=== PATIENT | female | born 1950 | race Caucasian/White ===

== ENCOUNTER → 2020-10-09 12:11 | Outpatient (BNVA) | payer MEDICARE, SELFPAY | PROVIDERS: PCP Family Medicine; Visit Provider Surgery ==

== ENCOUNTER 2020-10-27 09:21 | Outpatient (REF) | payer MEDICARE, SELFPAY ==
--- NOTE | ~2020-10-27 | XR_ITS ---
EXAMINATION: XR HAND, LEFT CLINICAL INFORMATION: Pain left hand COMPARISON: None TECHNIQUE: PA, lateral, and oblique views of the left hand. FINDINGS: There is mild loss of PIP, DIP joint space without periarticular spurring. No bony erosive changes. The MCP and intercarpal joint space is maintained normal. The soft tissues are normal. XR/XR hand LT min 3V IMPRESSION: Mild degenerative changes left hand. No visible acute fracture or dislocation seen.
== END 2020-10-27 09:22 | disposition home or self-care (01) ==
LOC: HO.HOSX 09:21
PROVIDERS: Visit Provider Orthopaedic Surgery
DX: M79.642 Pain in left hand (principal); M79.89 Other specified soft tissue disorders
CPT/HCPCS: 73130; 99202

== ENCOUNTER 2020-11-13 12:54 | Outpatient (REF) | payer MEDICARE, SELFPAY ==
--- NOTE | ~2020-11-13 | US_ITS ---
EXAMINATION: ULTRASOUND UPPER EXTREMITY NON JOINT, LEFT CLINICAL INFORMATION: Evaluate for radial artery aneurysm or cellulitis COMPARISON: Radiographs 10/27/2020 TECHNIQUE: Targeted ultrasound in the area of palpable concern along the volar/radial aspect of the distal forearm/wrist. FINDINGS: Subcutaneous edema is present in the area of palpable concern. No focal fluid collection. The radial artery appears normal without evidence of aneurysm/pseudoaneurysm as questioned. US/US extremity nonvascular IMPRESSION: Subcutaneous edema is noted in the area of palpable concern at the volar/radial aspect of the left wrist. Otherwise unremarkable.
== END 2020-11-13 12:55 | disposition home or self-care (01) ==
LOC: HO.US 12:54
PROVIDERS: Visit Provider Orthopaedic Surgery
DX: M79.89 Other specified soft tissue disorders (principal)
CPT/HCPCS: 76882

== ENCOUNTER → 2020-12-22 15:36 | Outpatient (BNVA) | payer MEDICARE, SELFPAY | PROVIDERS: PCP Family Medicine; Visit Provider Orthopaedic Surgery | DX: M79.89 Other specified soft tissue disorders (principal) | CPT/HCPCS: 99212 ==

== ENCOUNTER 2021-01-06 15:43 | Outpatient (REF) | payer MEDICARE, SELFPAY ==
--- NOTE | ~2021-01-06 | MR_ITS ---
EXAMINATION: MR FOREARM WITHOUT AND WITH CONTRAST, LEFT CLINICAL INFORMATION: Left forearm pain. Lump/mass. COMPARISON: Left upper extremity soft tissue ultrasound dated 11/13/2020. TECHNIQUE: Multisequence MR imaging of the left forearm was obtained before and after the administration of 9 mL Gadavist IV contrast on a high-field strength scanner. FINDINGS: BONE: No abnormal marrow signal. No evidence of acute osseous injury. MUSCLES/TENDONS: The visualized muscles and tendons appear intact without measurable defect or abnormal enhancement. LIGAMENTS: Evaluation of intra-articular ligamentous structures significantly limited on large [id number] imaging. SOFT TISSUES: Along the ventral/radial aspect of the proximal forearm there is focal skin thickening with underlying subcutaneous stranding and enhancement (axial image 28/34). Findings are nonspecific and may represent focal cellulitis versus a soft tissue contusion. No associated abscess formation or soft tissue mass. In the region of the overlying skin marker at the level of the distal radius there is a volar, lobulated fluid structure which measures 1.2 x 0.9 x 1.9 cm (AP x ML x CC). This demonstrates thin peripheral enhancement on postcontrast imaging. Evaluation is limited on large [id number]-qb-jqfw imaging, however, this may represent a ganglion cyst versus synovial recess. MR/MR forearm LT wo/w con IMPRESSION: 1. In the region of the overlying skin marker volar to the distal radius there is a lobulated fluid structure measuring up to 1.9 cm with thin peripheral enhancement. Evaluation limited on large grspt-nm-uvot imaging, however, this may represent a ganglion cyst versus synovial recess. If there is continued clinical concern, MR of the wrist could help further evaluate. 2. Focal skin thickening with underlying subcutaneous stranding and enhancement along the radial aspect of the proximal forearm, which could represent focal cellulitis versus a soft tissue injury. No associated abscess formation or soft tissue mass.
[2021-01-06 16:13] LABS: Blood Urea Nitrogen 21 mg/dL (9-16); Estimated Glomerular Filt Rate 60
== END 2021-01-06 15:44 | disposition home or self-care (01) ==
LOC: HO.MRI 15:43
PROVIDERS: PCP Orthopaedic Surgery; Visit Provider Orthopaedic Surgery
DX: M79.89 Other specified soft tissue disorders (principal)
CPT/HCPCS: 36415; 73220; 82565; 84520; A9585

== ENCOUNTER → 2021-02-18 07:54 | Outpatient (BNVA) | payer MEDICARE, SELFPAY | PROVIDERS: Visit Provider Orthopaedic Surgery | DX: G56.02 Carpal tunnel syndrome, left upper limb (principal); M67.432 Ganglion, left wrist | CPT/HCPCS: 99212 ==

== ENCOUNTER 2021-03-05 13:04 | Day surgery (SDC) | payer MEDICARE, SELFPAY ==
--- NOTE | 2021-03-05 13:20 | W.PM.OPN ---
Operative Note Operative Note Date of Service: 03/05/21 Narrative: Preop diagnosis: 1. Left Carpal tunnel syndrome Postop diagnosis: same Procedure: 1. Left Carpal tunnel release Surgeon: Dipika Zamudio MD Anesthesia: local block using 1% lidocaine with epinephrine Findings: Thickened transverse carpal ligament. EBL: Less than 5 mL Specimens: None Complications: None Disposition: Brought to recovery room in stable condition Plan: Follow-up for 7-10 days for wound check and suture removal Indications: The patient is 71 years old, with left carpal tunnel syndrome that has been unresponsive to nonoperative management. The risks and benefits of operative treatment including but not limited to risk of damage to blood vessels, nerves, tendons, infection, persistent pain, persistent symptoms, or possible need for additional surgery were discussed with the patient and the patient wishes to proceed with surgery. Procedure: Once consent was obtained a local block was performed using a combination of 1% lidocaine with epinephrine. The patient was then brought back to the operating suite and placed on the operative table in supine position. A tourniquet was applied to the proximal aspect of the left upper extremity and the limb was prepped and draped in a standard surgical fashion. Once assured that we had a good block, a 1.5 cm longitudinal incision was made centered over the carpal tunnel. The incision was made through the skin to the subcutaneous tissues using a #15 blade. Dissection was made down to the level of the transverse carpal ligament with care being taken to protect the palmar cutaneous nerve. Once the transverse carpal ligament was clearly visualized, a longitudinal incision was made in the transverse carpal ligament 1st using a #15 blade, then using tenotomy scissors under direct visualization. Care was taken to look for and protect the motor branch of the median nerve when seen in this area. Once satisfied with our carpal tunnel release the wound was copiously irrigated with normal saline and hemostasis was obtained with a brief period of local pressure. The skin edges were reapproximated with some 5.0 nylon suture material and a sterile dressing was applied. The patient appears to have tolerated the procedure well and with no complications. All digits were well vascularized at the conclusion of the case.
[2021-03-05 13:35] VITALS: BP 135/74; PULSE 63; RESP 16; TEMP 36.3; O2SAT 96; BMI 35.4
--- NOTE | 2021-03-05 15:00 | MHC.SHP ---
Pre-Procedural Eval Section A Date of Service: 03/05/21 The patient is an INPATIENT: No Changes since office visit: No Cold of Flu in the past 2 weeks, No New Medical Problems, No Changes in Medication and No Patient answered all questions The History & Physical has been completed within 30 days and I have reviewed it.: Yes Section B Chief Complaint: carpal tunnel Allergies: Allergies Allergy/AdvReac Type Severity Reaction Status Date / Time Penicillins [PENICILLINS] Allergy Intermediate HIVES Verified 02/18/21 08:01 pregabalin Allergy Unknown hives Verified 02/18/21 08:01 meperidine [From DEMEROL] AdvReac Severe HEADACHE/VO Verified 02/18/21 08:01 MITING Plan I have reviewed the history and physical and performed a pertinent physical examination on my patient. No changes have occurred unless specified.
[2021-03-05 16:07] VITALS: BP 152/69; PULSE 53; RESP 16; TEMP 36.3; O2SAT 96
== END 2021-03-05 16:11 ==
LOC: HO.SSS 13:04
PROVIDERS: PCP Family Medicine; Visit Provider Orthopaedic Surgery
PROC: (CPT 64721; principal; 2021-03-05 14:40)
DX: G56.02 Carpal tunnel syndrome, left upper limb (principal)
CPT/HCPCS: 64721

== ENCOUNTER → 2021-03-18 11:13 | Outpatient (BNVA) | payer MEDICARE, SELFPAY | PROVIDERS: PCP Family Medicine; Visit Provider Orthopaedic Surgery | DX: M67.432 Ganglion, left wrist (principal); G56.02 Carpal tunnel syndrome, left upper limb | CPT/HCPCS: 99212 ==

== ENCOUNTER 2021-08-24 08:26 | Outpatient (REF) | payer MEDICARE, SELFPAY ==
--- NOTE | ~2021-08-24 | XR_ITS ---
EXAMINATION: XR BILATERAL AP KNEE XR LEFT KNEE XR RIGHT KNEE CLINICAL INFORMATION: Bilateral knee pain. COMPARISON: None. TECHNIQUE: AP bilateral knee standing. 2 views each knee. FINDINGS: Ap Bilateral Knee: There is mild reduction in the medial and lateral compartment joint space of the left knee with periapical spurring medial compartment. There is chondrocalcinosis of the lateral compartment. There is a knee prosthesis right knee. Left Knee: There is moderate loss of patellofemoral compartment joint space with periarticular spurring. There is moderate suprapatellar joint effusion. There is a subtle lucency along the inferior patella likely old injury. There are enthesophytes along the anterior superior and anterior inferior patella as well. No loose body seen. Right Knee: There is a total right knee prosthesis with the prosthetic components in satisfactory alignment. There is soft tissue calcification along the quadriceps tendon. No visible fracture prosthetic loosening seen. No suggestion for fusion. XR/XR knee standing BI IMPRESSION: Degenerative arthritic changes tricompartment left knee with moderate suprapatellar joint effusion. There is periarticular spurring in the medial and the patellofemoral compartment with chondrocalcinosis. Total right knee prosthesis with prosthetic components in satisfactory alignment. No acute fracture seen.
--- NOTE | ~2021-08-24 | XR_ITS ---
EXAMINATION: XR BILATERAL AP KNEE XR LEFT KNEE XR RIGHT KNEE CLINICAL INFORMATION: Bilateral knee pain. COMPARISON: None. TECHNIQUE: AP bilateral knee standing. 2 views each knee. FINDINGS: Ap Bilateral Knee: There is mild reduction in the medial and lateral compartment joint space of the left knee with periapical spurring medial compartment. There is chondrocalcinosis of the lateral compartment. There is a knee prosthesis right knee. Left Knee: There is moderate loss of patellofemoral compartment joint space with periarticular spurring. There is moderate suprapatellar joint effusion. There is a subtle lucency along the inferior patella likely old injury. There are enthesophytes along the anterior superior and anterior inferior patella as well. No loose body seen. Right Knee: There is a total right knee prosthesis with the prosthetic components in satisfactory alignment. There is soft tissue calcification along the quadriceps tendon. No visible fracture prosthetic loosening seen. No suggestion for fusion. XR/XR knee RT 2V IMPRESSION: Degenerative arthritic changes tricompartment left knee with moderate suprapatellar joint effusion. There is periarticular spurring in the medial and the patellofemoral compartment with chondrocalcinosis. Total right knee prosthesis with prosthetic components in satisfactory alignment. No acute fracture seen.
--- NOTE | ~2021-08-24 | XR_ITS ---
EXAMINATION: XR BILATERAL AP KNEE XR LEFT KNEE XR RIGHT KNEE CLINICAL INFORMATION: Bilateral knee pain. COMPARISON: None. TECHNIQUE: AP bilateral knee standing. 2 views each knee. FINDINGS: Ap Bilateral Knee: There is mild reduction in the medial and lateral compartment joint space of the left knee with periapical spurring medial compartment. There is chondrocalcinosis of the lateral compartment. There is a knee prosthesis right knee. Left Knee: There is moderate loss of patellofemoral compartment joint space with periarticular spurring. There is moderate suprapatellar joint effusion. There is a subtle lucency along the inferior patella likely old injury. There are enthesophytes along the anterior superior and anterior inferior patella as well. No loose body seen. Right Knee: There is a total right knee prosthesis with the prosthetic components in satisfactory alignment. There is soft tissue calcification along the quadriceps tendon. No visible fracture prosthetic loosening seen. No suggestion for fusion. XR/XR knee LT 2V IMPRESSION: Degenerative arthritic changes tricompartment left knee with moderate suprapatellar joint effusion. There is periarticular spurring in the medial and the patellofemoral compartment with chondrocalcinosis. Total right knee prosthesis with prosthetic components in satisfactory alignment. No acute fracture seen.
== END 2021-08-24 08:27 | disposition home or self-care (01) ==
LOC: HO.HOSX 08:26
PROVIDERS: Visit Provider Orthopaedic Surgery
DX: M17.12 Unilateral primary osteoarthritis, left knee (principal); Z96.651 Presence of right artificial knee joint
CPT/HCPCS: 20610; 73560; 73565; 99212; J1100

== ENCOUNTER 2021-08-30 17:42 | Emergency (ER) | payer MEDICARE, SELFPAY ==
--- NOTE | ~2021-08-30 | XR_ITS ---
EXAMINATION: XR CHEST CLINICAL INFORMATION: SOB COMPARISON: None TECHNIQUE: 2 views of the chest were obtained. FINDINGS: The lungs are well-expanded and clear. The heart size and pulmonary vascularity is normal. There is moderate spondylosis dorsal spine. No lytic process. XR/XR chest 2V IMPRESSION: Unremarkable chest exam.
[2021-08-30 17:52] VITALS: BP 148/62; PULSE 64; RESP 18; TEMP 37.1; O2SAT 95; BMI 34.8
--- NOTE | 2021-08-30 17:55 | ECG_ITS ---
Test Reason : chest pain Blood Pressure : / mmHG Vent. Rate : 063 BPM Atrial Rate : 063 BPM P-R Int : 210 ms QRS Dur : 098 ms QT Int : 408 ms P-R-T Axes : 076 -10 012 degrees QTc Int : 417 ms Sinus rhythm with 1st degree A-V block Moderate voltage criteria for LVH, may be normal variant ( R in aVL , Monty product ) Borderline ECG No previous ECGs available Referred By: Generic ED Physician Electronically Signed By:Johnny Woodall
[2021-08-30 21:10] LABS: Appearance Urine CLEAR; Color Urine YELLOW; Glucose Urine UA NEG (NEG); Leukocyte Esterase Urine 1+ (NEG); Nitrite Urine NEG (NEG); PH 5.5 (5.0-8.0); UACC Culture Trigger YES; Urine Blood TRACE (NEG); Urine Ketones NEG (NEG); Urine Protein NEG (NEG-TRACE)
[2021-08-30 21:30] LABS: Bacteria Urine 1+ /LPF; Squamous Epithelial Cell Urine 1+ /LPF
== END 2021-08-30 20:54 | disposition left against medical advice (07) ==
PROVIDERS: Emergency Provider Emergency Medicine; PCP Podiatrist Foot & Ankle Surgery
DX: R06.02 Shortness of breath (principal); M54.50 Low back pain, unspecified; R35.0 Frequency of micturition; Z79.899 Other long term (current) drug therapy
CPT/HCPCS: 71046; 81001; 81003; 87086; 93005; 99282; 99283

== ENCOUNTER 2021-09-08 14:35 | Outpatient (REF) | payer MEDICARE, SELFPAY ==
--- NOTE | ~2021-09-08 | CT_ITS ---
EXAMINATION: CT ABDOMEN AND PELVIS WITHOUT CONTRAST CLINICAL INFORMATION: Abdominal pain COMPARISON: None TECHNIQUE: Multidetector volumetric imaging was performed from the superior aspect of the liver through the pubic symphysis. Sagittal and coronal reformatted images were obtained on the technologist's workstation. This CT examination was performed using dose optimization techniques as appropriate, variously including the following: *Automated exposure control *Adjustment of mA and/or kV according to patient size (this includes techniques or standardized protocols for targeted exams where dose is matched to indication/reason for exam; i.e. extremities or head) *Use of iterative reconstruction technique DLP: 607 mGy-cm FINDINGS: LUNG BASES: There is a 2 mm left lower lobe nodule axial image 34 series 6. Lung bases are otherwise clear. The heart is slightly enlarged. LIVER, GALLBLADDER, AND BILIARY TREE: There is a 2 cm low-attenuation lesion in the posterior segment of the right lobe of the liver. This has low/negative Hounsfield units and may represent a cyst or fatty lesion.. The gallbladder has been removed. PANCREAS: Unremarkable. SPLEEN: Unremarkable. ADRENAL GLANDS: Unremarkable. KIDNEYS AND URETERS: The kidneys are normal in size, shape, and attenuation. No hydronephrosis, hydroureter, or calculi seen. No perinephric stranding. BLADDER: Unremarkable. GASTROINTESTINAL TRACT: There is diverticulosis of the colon. No evidence of diverticulitis is seen. The small and large bowel are otherwise unremarkable. The appendix is not seen. There are no inflammatory changes.. ABDOMINAL WALL: Small umbilical hernia containing fat. LYMPH NODES: Normal. VASCULAR: Unremarkable. PELVIC VISCERA: Unremarkable. OSSEOUS STRUCTURES: Mild scoliosis and degenerative changes of the spine. CT/CT abdomen pelvis wo con IMPRESSION: No acute findings. Diverticulosis. No evidence of diverticulitis. 2 cm low-attenuation lesion in the liver. This may represent a cyst or fatty lesion. Cholecystectomy. 2 mm left lower lobe pulmonary nodule. Fleischner guidelines were followed.
== END 2021-09-08 14:36 | disposition home or self-care (01) ==
LOC: HO.CT 14:35
PROVIDERS: Visit Provider Family Medicine
DX: R10.9 Unspecified abdominal pain (principal); R31.9 Hematuria, unspecified
CPT/HCPCS: 74176

== ENCOUNTER 2022-03-22 12:55 | Emergency (ER) | payer MEDICARE, SELFPAY ==
--- NOTE | ~2022-03-22 | XR_ITS ---
EXAMINATION: XR CHEST CLINICAL INFORMATION: Shortness of breath COMPARISON: 08/30/2021 TECHNIQUE: Frontal view of the chest was obtained. FINDINGS: Lungs grossly are clear. Heart and pulmonary vessels are normal. No congestive change. XR/XR chest 1V IMPRESSION: No active disease.
[2022-03-22 13:17] VITALS: BP 130/88; PULSE 65; RESP 16; TEMP 36.6; O2SAT 95; BMI 35.4
[2022-03-22 13:46] LABS: MANUAL DIFF FLAG NO
[2022-03-22 13:47] LABS: Basophils Percent Auto 0.2 % (0-2); Eosinophils Absolute Auto 0.2 X10*3/uL (0.0-0.4); Eosinophils Percent Auto 2.4 % (0-4); Hematocrit 42.7 % (37.0-47.0); Hemoglobin 14.2 g/dl (12.0-16.0); Imm Gran Abs Auto 0.04 X10*3/uL (0.00-0.03); Imm Gran Pct Auto 0.4 % (0.0-0.4); Lymphocytes Absolute Auto 1.1 X10*3/uL (1.2-4.9); Lymphocytes Percent Auto 11.8 % (20-40); Mean Corpuscular HGB Conc 33.3 g/dl (31.0-35.0); Mean Corpuscular Hemoglobin 29.1 pg (27.0-33.0); Mean Corpuscular Volume 87.5 fL (80.0-98.0); Mean Platelet Volume 9.3 fL (9.4-12.3); Monocytes Absolute Auto 0.5 X10*3/uL (0.1-1.2); Monocytes Percent Auto 4.9 % (2-11); Neutrophils Absolute Auto 7.6 x10*3/uL (2.0-8.3); Neutrophils Percent Auto 80.3 % (45-73); Platelet Count 251 X10*3/uL (160-400); Red Blood Count 4.88 X10*6/uL (4.20-5.50); Red Cell Distribution Width 13.3 % (11.0-16.0); White Blood Count 9.5 X10*3/uL (4.8-10.8)
[2022-03-22 13:59] LABS: Anion Gap 15 (12-20); Blood Urea Nitrogen 12 mg/dL (9-16); Calcium 9.2 mg/dL (8.4-10.2); Carbon Dioxide 27 mmol/L (22-29); Chloride 105 mmol/L (96-108); Estimated Glomerular Filt Rate > 60; Glucose Random 123 mg/dL (60-115); Potassium 3.9 mmol/L (3.3-5.1); Sodium 143 mmol/L (135-145)
[2022-03-22 14:15] LABS: COVID-19 Test Negative (Negative); IDNOW Serial# 55D5AD1C
== END 2022-03-22 23:46 | disposition left against medical advice (07) ==
PROVIDERS: Emergency Medicine; Emergency Provider Emergency Medicine; PCP Podiatrist Foot & Ankle Surgery
DX: R06.02 Shortness of breath (principal); Z20.822 Contact with and (suspected) exposure to COVID-19; R51.9 Headache, unspecified
CPT/HCPCS: 71045; 80048; 85025; 87635; 99283

== ENCOUNTER 2022-06-23 13:01 | Emergency (ER) | payer MEDICARE, SELFPAY ==
--- NOTE | ~2022-06-23 | CT_ITS ---
EXAMINATION: CT ABDOMEN AND PELVIS WITHOUT CONTRAST CLINICAL INFORMATION: Right lower quadrant pain. COMPARISON: CT abdomen 09/08/2021 TECHNIQUE: Multidetector volumetric imaging was performed from the superior aspect of the liver through the pubic symphysis. Sagittal and coronal reformatted images were obtained on the technologist's workstation. This CT examination was performed using dose optimization techniques as appropriate, variously including the following: *Automated exposure control *Adjustment of mA and/or kV according to patient size (this includes techniques or standardized protocols for targeted exams where dose is matched to indication/reason for exam; i.e. extremities or head) *Use of iterative reconstruction technique DLP: 796 mGy-cm FINDINGS: LUNG BASES: Lung bases are clear. The heart size is normal. There is a small hiatal hernia. LIVER, GALLBLADDER, AND BILIARY TREE: The liver is normal in size, shape, and attenuation. There is a 2.4 cm lobulated low-attenuation lesion posterior segment right hepatic lobe. Previously measured 2 cm. Rest of the liver is unremarkable. No intrahepatic ductal dilatation seen. The gallbladder has been surgically removed. PANCREAS: Unremarkable. SPLEEN: Unremarkable. ADRENAL GLANDS: Unremarkable. KIDNEYS AND URETERS: The kidneys are normal in size, shape, and attenuation. No hydronephrosis, hydroureter, or calculi seen. No perinephric stranding. BLADDER: Unremarkable. GASTROINTESTINAL TRACT: There is scattered stool, diverticuli and gas seen throughout the colon without significant distention or diverticulitis. The small bowel loops are normal caliber. The ileocecal junction lies in right lower pelvis. Appendix is not seen. There are no inflammatory changes in the right lower quadrant. ABDOMINAL WALL: No significant hernia is appreciated. LYMPH NODES: Normal. VASCULAR: Unremarkable. PELVIC VISCERA: The uterus is midline and appears unremarkable. There is no adnexal mass or fluid. OSSEOUS STRUCTURES: Mild degenerative disc changes L2-L3, L3-L4 and L4-L5 disc levels with ventral spondylosis. No aggressive lytic or sclerotic process. CT/CT abdomen pelvis wo IV con IMPRESSION: 1. . No acute intra-abdominal process seen. 2. Colonic diverticulosis without diverticulitis. Mild constipation. Appendix is not seen. There are no inflammatory changes in the right lower quadrant. 3. There is a 2.4 cm lobulated low-attenuation lesion in liver unchanged to previous exam from 22. Posterior segment right hepatic lobe. Fleischner guidelines were followed.
[2022-06-23 13:09] VITALS: BP 153/73; PULSE 66; RESP 18; TEMP 36.3; O2SAT 96; BMI 35.4
--- NOTE | 2022-06-23 13:09 | ED_ITS ---
HPI - Abdominal Pain General Chief Complaint: Abdominal Pain <JANIE Christian - Last Filed: 06/23/22 13:13> Stated Complaint: sent by doctor. R side hip pain going into back. <JANIE Christian - Last Filed: 06/23/22 13:13> Time Seen by Provider: 06/23/22 17:00 <JANIE Christian - Last Filed: 06/23/22 13:13> Source: patient <Malachi Samson MD - Last Filed: 06/24/22 00:58> Mode of arrival: ambulatory <Malachi Samson MD - Last Filed: 06/24/22 00:58> Limitations: no limitations <Malachi Samson MD - Last Filed: 06/24/22 00:58> History of Present Illness HPI narrative: 72 y/o female with history of diverticulitis s/p partial bowel resection in the past, hx cholecystectomy presents to the ER for right lower abdominal pain that started yesterday. Also has right lower back pain. No history of kidney stones. No urinary symptoms. No vomiting, diarrhea, or fevers. +Nausea, +CVA tenderness on the right. Patient had diverticulitis in the past but pain was on the left side feel bloated poor appetite pain get worse on movement <Malachi Samson MD - Last Filed: 06/24/22 00:58> Related Data Home Medications: Home Medications Medication Instructions Recorded Confirmed diltiazem HCl 240 mg 240 mg PO DAILY 10/09/20 06/23/22 capsule,extended release 24 hr furosemide 40 mg tablet 40 mg PO DAILY 10/09/20 06/23/22 losartan 50 mg tablet 100 mg PO DAILY 10/09/20 06/23/22 metformin 500 mg tablet 500 mg PO BID 10/09/20 06/23/22 metoprolol succinate 100 mg 100 mg PO DAILY 10/09/20 06/23/22 tablet,extended release 24 hr multivitamin 1 tab PO DAILY 10/09/20 06/23/22 pravastatin 40 mg tablet 40 mg PO DAILY 10/09/20 06/23/22 <JANIE Christian - Last Filed: 06/23/22 13:13> Allergies/Adverse Reactions: Allergies Allergy/AdvReac Type Severity Reaction Status Date / Time Penicillins [PENICILLINS] Allergy Intermediate HIVES Verified 06/23/22 13:12 pregabalin Allergy Unknown hives Verified 06/23/22 13:12 meperidine [From DEMEROL] AdvReac Severe HEADACHE/VO Verified 06/23/22 13:12 MITING <JANIE Christian - Last Filed: 06/23/22 13:13> Review of Systems Review of Systems Yes all other systems are reviewed and are negative <Malachi Samson MD - Last Filed: 06/24/22 00:58> [facility] Past Medical History Surgical History: Surgical History History of back surgery Hx of breast surgery Hx of foot surgery Hx of knee surgery <JANIE Christian - Last Filed: 06/23/22 13:13> Family History Family History: Family History Mother No problems noted. Father No problems noted. Sister No problems noted. Sister No problems noted. Sister No problems noted. Sister No problems noted. Brother No problems noted. Brother No problems noted. Brother No problems noted. Son No problems noted. Daughter Obesity <JANIE Christian - Last Filed: 06/23/22 13:13> Social History Social History: Social History Alcohol intake: current Alcohol intake frequency: holidays/special occasions only Patient Tobacco Use Status: Never used Tobacco Advance Directives: No Advance Directives Information Provided: No Current occupational status: employed Current occupation: customer service cashier [employer] <JANIE Christian - Last Filed: 06/23/22 13:13> Physical Exam ED Vital Signs: Vital Signs - 24 hr 06/23/22 13:09 06/23/22 17:18 Temperature 97.3 F 98.2 F Pulse Rate 66 67 Respiratory Rate 18 16 Blood Pressure 153/73 H 142/76 H Pulse Oximetry 96 98 Oxygen Delivery Method Room Air Room Air BMI result Body Mass Index 35.4 <JANIE Christian - Last Filed: 06/23/22 13:13> Vital Signs - 24 hr 06/23/22 13:09 06/23/22 17:18 Temperature 97.3 F 98.2 F Pulse Rate 66 67 Respiratory Rate 18 16 Blood Pressure 153/73 H 142/76 H Pulse Oximetry 96 98 Oxygen Delivery Method Room Air Room Air BMI result Body Mass Index 35.4 <Malachi Samson MD - Last Filed: 06/24/22 00:58> Appearance: Alert. Oriented X3. No acute distress. Eyes: No pallor or icterus ENT: Pharynx normal. Oral Mucosa moist Neck: Normal inspection. Neck supple. CVS: Normal heart rate and rhythm. Pulses normal. Respiratory: No respiratory distress. Equal air entry bilateral, no wheezing/rales/rhonchi Abdomen: Soft, tenderness right mid abdomen no rebound tenderness or guarding. Bowel sounds are present, no mass palpable, no CVA tenderness Skin: Skin warm and dry. Normal skin color. Normal skin turgor. Extremities: No lower extremity edema. No calf tenderness Neuro: Oriented X 3. No motor deficit. <Malachi Samson MD - Last Filed: 06/24/22 00:58> Course Course Course Narrative: RME - 72 y/o female with history of diverticulitis s/p partial bowel resection in the past, hx cholecystectomy presents to the ER for right lower abdominal pain that started yesterday. Also has right lower back pain. No history of kidney stones. No urinary symptoms. No vomiting, diarrhea, or fevers. +Nausea, +CVA tenderness on the right. Will get labs and CT scan for further evaluation. <JANIE Christian - Last Filed: 06/23/22 13:13> Medical Decision Making Medical Decision Making [facility] Narrative: Patient with right lower abdomen and pain for last few days CT scan negative for acute pathology labs are stable urine negative likely patient has pain from abdominal muscular strain. Advised patient to take ibuprofen follow with PCP <Malachi Samson MD - Last Filed: 06/24/22 00:58> Lab Data [facility] Lab Attestation statement: I reviewed the patient's lab results. <Malachi Samson MD - Last Filed: 06/24/22 00:58> Result Diagrams: 06/23/22 13:53 06/23/22 13:53 <JANIE Christian - Last Filed: 06/23/22 13:13> Labs: Lab Results 06/23/22 06/23/22 06/23/22 Range/Units 13:53 13:53 17:21 WBC 6.3 (4.8-10.8) X10*3/uL RBC 4.52 (4.20-5.50) X10*6/uL Hgb 13.5 (12.0-16.0) g/dl Hct 40.8 (37.0-47.0) % MCV 90.3 (80.0-98.0) fL MCH 29.9 (27.0-33.0) pg MCHC 33.1 (31.0-35.0) g/dl RDW 13.5 (11.0-16.0) % Plt Count 216 (160-400) X10*3/uL MPV 9.7 (9.4-12.3) fL Immature Gran % (Auto) 0.3 (0.0-0.4) % Neut % (Auto) 60.0 (45-73) % Lymph % (Auto) 18.8 L (20-40) % Bowie % (Auto) 10.6 (2-11) % Eos % (Auto) 10.0 H (0-4) % Baso % (Auto) 0.3 (0-2) % Lymph # (Auto) 1.2 (1.2-4.9) X10*3/uL Bowie # (Auto) 0.7 (0.1-1.2) X10*3/uL Eos # (Auto) 0.6 H (0.0-0.4) X10*3/uL Baso # (Auto) 0.0 (0.0-0.2) X10*3/uL Abs Immat Gran (auto) 0.02 (0.00-0.03) X10*3/uL Absolute Neuts (auto) 3.8 (2.0-8.3) x10*3/uL Absolute Nucleated RBC 0.000 (0.0-0.012) X10*3/uL Nucleated RBC % (auto) 0.0 (0.0-0.2) /100WBC Sodium 141 (135-145) mmol/L Potassium 3.9 (3.3-5.1) mmol/L Chloride 106 (96-108) mmol/L Carbon Dioxide 28 (22-29) mmol/L Anion Gap 11 L (12-20) BUN 13 (9-16) mg/dL Creatinine 0.73 (0.5-1.4) mg/dL Estim Creat Clear Calc 76.6 Estimated GFR > 60 Random Glucose 95 (60-115) mg/dL Calcium 9.8 D (8.4-10.2) mg/dL Magnesium 1.9 (1.6-2.6) mg/dL Total Bilirubin 1.4 H (0.0-1.0) mg/dL Direct Bilirubin 0.5 (0.0-0.5) mg/dL AST 38 H (5-31) U/L ALT 36 H (0-31) U/L Alkaline Phosphatase 89 (39-117) U/L Total Protein 6.5 (6.5-8.0) g/dL Albumin 3.9 (3.5-5.0) g/dL Urine Color Yellow Urine Appearance Clear Urine pH 6.0 (5.0-9.0) Ur Specific Lucile 1.025 (1.005-1.025) Urine Protein Negative (Neg-Trace) mg/dL Urine Glucose (UA) Negative (Negative) mg/dL Urine Ketones Negative (Negative) mg/dL Urine Blood Negative (Negative) Urine Nitrite Negative (Negative) Ur Leukocyte Esterase Negative (Negative) <JANIE Christian - Last Filed: 06/23/22 13:13> Lab Results 06/23/22 06/23/22 06/23/22 Range/Units 13:53 13:53 17:21 WBC 6.3 (4.8-10.8) X10*3/uL RBC 4.52 (4.20-5.50) X10*6/uL Hgb 13.5 (12.0-16.0) g/dl Hct 40.8 (37.0-47.0) % MCV 90.3 (80.0-98.0) fL MCH 29.9 (27.0-33.0) pg MCHC 33.1 (31.0-35.0) g/dl RDW 13.5 (11.0-16.0) % Plt Count 216 (160-400) X10*3/uL MPV 9.7 (9.4-12.3) fL Immature Gran % (Auto) 0.3 (0.0-0.4) % Neut % (Auto) 60.0 (45-73) % Lymph % (Auto) 18.8 L (20-40) % Bowie % (Auto) 10.6 (2-11) % Eos % (Auto) 10.0 H (0-4) % Baso % (Auto) 0.3 (0-2) % Lymph # (Auto) 1.2 (1.2-4.9) X10*3/uL Bowie # (Auto) 0.7 (0.1-1.2) X10*3/uL Eos # (Auto) 0.6 H (0.0-0.4) X10*3/uL Baso # (Auto) 0.0 (0.0-0.2) X10*3/uL Abs Immat Gran (auto) 0.02 (0.00-0.03) X10*3/uL Absolute Neuts (auto) 3.8 (2.0-8.3) x10*3/uL Absolute Nucleated RBC 0.000 (0.0-0.012) X10*3/uL Nucleated RBC % (auto) 0.0 (0.0-0.2) /100WBC Sodium 141 (135-145) mmol/L Potassium 3.9 (3.3-5.1) mmol/L Chloride 106 (96-108) mmol/L Carbon Dioxide 28 (22-29) mmol/L Anion Gap 11 L (12-20) BUN 13 (9-16) mg/dL Creatinine 0.73 (0.5-1.4) mg/dL Estim Creat Clear Calc 76.6 Estimated GFR > 60 Random Glucose 95 (60-115) mg/dL Calcium 9.8 D (8.4-10.2) mg/dL Magnesium 1.9 (1.6-2.6) mg/dL Total Bilirubin 1.4 H (0.0-1.0) mg/dL Direct Bilirubin 0.5 (0.0-0.5) mg/dL AST 38 H (5-31) U/L ALT 36 H (0-31) U/L Alkaline Phosphatase 89 (39-117) U/L Total Protein 6.5 (6.5-8.0) g/dL Albumin 3.9 (3.5-5.0) g/dL Urine Color Yellow Urine Appearance Clear Urine pH 6.0 (5.0-9.0) Ur Specific Lucile 1.025 (1.005-1.025) Urine Protein Negative (Neg-Trace) mg/dL Urine Glucose (UA) Negative (Negative) mg/dL Urine Ketones Negative (Negative) mg/dL Urine Blood Negative (Negative) Urine Nitrite Negative (Negative) Ur Leukocyte Esterase Negative (Negative) <Malachi Samson MD - Last Filed: 06/24/22 00:58> Discharge Plan Discharge Clinical Impression: Abdominal pain <JANIE Christian - Last Filed: 06/23/22 13:13> Patient Disposition: Home, Self-Care <JANIE Christian - Last Filed: 06/23/22 13:13> Instructions: Abdominal Pain (ED) <JANIE Christian - Last Filed: 06/23/22 13:13> Additional Instructions: Drink plenty of fluid Cause of your abdominal pain is not clear/likely musculoskeletal Take ibuprofen for pain Report to the ER if pain gets worse/vomiting/fever <JANIE Christian - Last Filed: 06/23/22 13:13> Prescriptions: No Action metoprolol succinate 100 mg tablet extended release 24 hr 100 mg PO DAILY pravastatin 40 mg tablet 40 mg PO DAILY furosemide 40 mg tablet 40 mg PO DAILY diltiazem HCl 240 mg capsule,extended release 24hr 240 mg PO DAILY metformin 500 mg tablet 500 mg PO BID losartan 50 mg tablet 100 mg PO DAILY multivitamin Tablet 1 tab PO DAILY <JANIE Christian - Last Filed: 06/23/22 13:13> Interventions: ED Discharge Assessment Last Done: 06/23/22 18:11 <JANIE Christian - Last Filed: 06/23/22 13:13> Discharge Date/Time: 06/23/22 18:11 <JANIE Christian - Last Filed: 06/23/22 13:13>
[2022-06-23 13:57] LABS: MANUAL DIFF FLAG NO
[2022-06-23 14:05] LABS: Basophils Percent Auto 0.3 % (0-2); Eosinophils Absolute Auto 0.6 X10*3/uL (0.0-0.4); Hematocrit 40.8 % (37.0-47.0); Hemoglobin 13.5 g/dl (12.0-16.0); Imm Gran Abs Auto 0.02 X10*3/uL (0.00-0.03); Imm Gran Pct Auto 0.3 % (0.0-0.4); Lymphocytes Absolute Auto 1.2 X10*3/uL (1.2-4.9); Lymphocytes Percent Auto 18.8 % (20-40); Mean Corpuscular HGB Conc 33.1 g/dl (31.0-35.0); Mean Corpuscular Hemoglobin 29.9 pg (27.0-33.0); Mean Corpuscular Volume 90.3 fL (80.0-98.0); Mean Platelet Volume 9.7 fL (9.4-12.3); Monocytes Absolute Auto 0.7 X10*3/uL (0.1-1.2); Monocytes Percent Auto 10.6 % (2-11); Neutrophils Absolute Auto 3.8 x10*3/uL (2.0-8.3); Platelet Count 216 X10*3/uL (160-400); Red Blood Count 4.52 X10*6/uL (4.20-5.50); Red Cell Distribution Width 13.5 % (11.0-16.0); White Blood Count 6.3 X10*3/uL (4.8-10.8)
[2022-06-23 14:31] LABS: Alanine Aminotransferase 36 U/L (0-31); Albumin Level 3.9 g/dL (3.5-5.0); Alkaline Phosphatase 89 U/L (39-117); Anion Gap 11 (12-20); Aspartate Amino Transferase 38 U/L (5-31); Bilirubin Direct 0.5 mg/dL (0.0-0.5); Bilirubin Total 1.4 mg/dL (0.0-1.0); Blood Urea Nitrogen 13 mg/dL (9-16); Calcium 9.8 mg/dL (8.4-10.2); Carbon Dioxide 28 mmol/L (22-29); Chloride 106 mmol/L (96-108); Creatinine Clr Calc Pharmacy 76.6; Estimated Glomerular Filt Rate > 60; Glucose Random 95 mg/dL (60-115); Magnesium 1.9 mg/dL (1.6-2.6); Potassium 3.9 mmol/L (3.3-5.1); Sodium 141 mmol/L (135-145); Total Protein 6.5 g/dL (6.5-8.0)
[2022-06-23 17:18] VITALS: BP 142/76; PULSE 67; RESP 16; TEMP 36.8; O2SAT 98
--- NOTE | 2022-06-23 17:19 | MHC.EDTECH ---
this pct just assumed care of pt at this time ,vital sign taken ,urine sample sent to lab .
[2022-06-23 17:36] LABS: Appearance Urine Clear; Color Urine Yellow; Glucose Urine UA Negative (Negative); Leukocyte Esterase Urine Negative (Negative); Nitrite Urine Negative (Negative); Specific Gravity - Urine 1.025 (1.005-1.025); Urine Blood Negative (Negative); Urine Ketones Negative (Negative); Urine Protein Negative (Neg-Trace)
== END 2022-06-23 18:11 | disposition home or self-care (01) ==
PROVIDERS: Physician Assistant; Emergency Provider Internal Medicine; PCP Family Medicine
DX: R10.13 Epigastric pain (principal); R10.31 Right lower quadrant pain; Z79.899 Other long term (current) drug therapy
CPT/HCPCS: 36415; 74176; 80048; 80076; 81003; 83735; 85025; 99284

== ENCOUNTER 2024-08-27 14:15 | Outpatient (AMB) | payer MEDICARE, SELFPAY ==
--- NOTE | 2024-08-27 14:16 | A.OFFVIS_ITS ---
Intake Visit Reasons: oV-left knee stiff/pain limited ROM Intake Note: Kayley is a 74 year old female who presents today for a follow up of her left knee OA. She was last seen in 08/25/2023 where the left knee was injected. which was helpful Hx of Right TKA, several years ago. Patient reports that she is having increased pain at night. She has pain while getting in and out of the car. She takes Tylenol or her pain which is mildly helpful. She has been prescribed 5mg Oxycodone by her Oncologist which she takes occationally. Allergies Penicillins [PENICILLINS] Allergy (Intermediate, Verified 06/23/22 13:12) HIVES pregabalin Allergy (Unknown, Verified 06/23/22 13:12) hives meperidine [From DEMEROL] Adverse Reaction (Severe, Verified 06/23/22 13:12) HEADACHE/VOMITING HPI HPI oV-left knee stiff/pain limited ROM: Details: Melissa comes in today with left knee pain. She has also had some sharp left groin pain. This has improved slightly over the past few weeks and now her primary complaint is left knee pain at night. Denies any recent injury. She is able to walk comfortably without an assistive device. [facility] Surgical History (Updated 08/27/24 @ 14:34 by Linnea Christianson [facility]) History of resection of liver (~2019) History of back surgery Hx of foot surgery Hx of breast surgery Hx of knee surgery Family History Mother No problems noted. Father No problems noted. Sister No problems noted. Sister No problems noted. Sister No problems noted. Sister No problems noted. Brother No problems noted. Brother No problems noted. Brother No problems noted. Son No problems noted. Daughter Obesity Social History Alcohol intake: current Alcohol intake frequency: holidays/special occasions only Patient Tobacco Use Status: Never used Tobacco Current occupational status: employed Current occupation: gas station cashier [employer] Physical Exam Extrem Other: No pain with hip hip range of motion on the left. Left knee with mild medial compartment tenderness to palpation and 5 degree loss of terminal extension with flexion to approximately 125 degrees. Results Reviewed Results Reviewed: I personally reviewed relevant radiographs. Mild hip osteoarthritis bilaterally. RIght total knee arthroplasty in expected post operative position with no hardware complications or evidence of loosening Left knee with moderate tricompartmental OA Assessment & Plan Assessment & Plan (1) Osteoarthritis of left knee: Code(s): M17.12 - Unilateral primary osteoarthritis, left knee Category: Medical Plan: Osteoarthritis of the left knee that is improving with medical management per her medical doctor. No intervention warranted at this time. She may follow up for injection for pain worsens but at this time I feel like it is improving on her own. I discussed this with her. She agrees. Orders: Orders XR knee RT 1V Today M25.569 - Pain in unspecified knee XR knee RT 2V Today Z98.890 - Other specified postprocedural states XR pelvis 1-2V Today M25.559 - Pain in unspecified hip Coding Level of Care Code Est Pt Level 3 (43389) Diagnoses Osteoarthritis of left knee M17.12
== END 2024-08-27 15:03 | disposition home or self-care (01) ==
LOC: HO.HOS 14:15
PROVIDERS: PCP Family Medicine; Visit Provider Orthopaedic Surgery
DX: M17.12 Unilateral primary osteoarthritis, left knee (principal)
CPT/HCPCS: 99213

== ENCOUNTER 2024-08-27 14:40 | Outpatient (REF) | payer MEDICARE, SELFPAY ==
--- NOTE | ~2024-08-27 | XR_ITS ---
CLINICAL HISTORY: M25.559 - Pain in unspecified hip 1 view pelvis Comparison: CT of the pelvis and bone windows from 06/23/2022 Findings: Moderate to severe osteoarthritis of the both hips, right worse than left. Sacrum and SI joints are partly obscured with degenerative changes of the partially imaged SI joints Imaged pubic rami deformities appear old chronic. Likely vascular calcification adjacent to inferior edge of the right inferior pubic ramus Enthesopathy includes imaged iliac wings of the imaged trochanters. Moderate to severe stool burden in the [id number] IMPRESSION: Moderate to severe osteoarthritis of both hips This document has been electronically signed by: Markus Rojas MD on 08/28/2024 19:53:59
--- NOTE | ~2024-08-27 | XR_ITS ---
CLINICAL HISTORY: Z98.890 - Other specified postprocedural states AP standing view bilateral knees Two-view left knee Comparison: None Findings: Prior right knee replacement. Appropriate alignment. No evidence of hardware failure. No fracture or dislocation. There is osteopenia. Moderate arthritic changes of the left knee with involvement of all 3 knee compartments. No joint effusion. No radiopaque foreign body. IMPRESSION: 1. No acute findings. This document has been electronically signed by: Sayda Hedrick MD on 08/29/2024 13:58:39
== END 2024-08-27 14:41 | disposition home or self-care (01) ==
LOC: HO.HOSX 14:40
PROVIDERS: Visit Provider Orthopaedic Surgery
DX: M25.559 Pain in unspecified hip (principal); M25.569 Pain in unspecified knee; M16.0 Bilateral primary osteoarthritis of hip; M17.12 Unilateral primary osteoarthritis, left knee; Z96.651 Presence of right artificial knee joint
CPT/HCPCS: 72170; 73562; 99212

== ENCOUNTER → 2024-08-27 14:45 | Outpatient (BNV) | payer MEDICARE, SELFPAY | PROVIDERS: Visit Provider Radiology Neuroradiology | DX: Z96.652 Presence of left artificial knee joint (principal) | CPT/HCPCS: 72170; 73562 ==

== ENCOUNTER 2025-01-28 18:49 | Emergency (ER) | payer MEDICARE, SELFPAY ==
--- NOTE | ~2025-01-28 | XR_ITS ---
CLINICAL HISTORY: Right knee pain fall 4 view right knee Comparison: None provided Findings: Postprocedural changes from right knee arthroplasty. No displaced fracture or definite hardware loosening. Moderate effusion present with multiple loose bodies. Remodeling including proximal fibula. IMPRESSION: 1. No acute fracture or hardware loosening by radiographs. 2. Effusion present. This document has been electronically signed by: Markus Rojas MD on 01/28/2025 20:30:26
--- NOTE | ~2025-01-28 | CT_ITS ---
CLINICAL HISTORY: fall CT head without contrast Comparison: None provided Findings: No acute intracranial hemorrhage. No midline shift or hydrocephalus. No large arterial territorial infarction by CT, accounting for artifacts. Mild volume loss is generalized. Question mild white matter changes as can be associated with small-vessel ischemic disease. Mucosal thickening of the imaged paranasal sinuses. No acute skull fracture. Left-sided periorbital soft tissue swelling with hematoma appear preseptal. Lucency at roof of the left orbit appears old/chronic. Imaged mastoid air cells are well aerated. There is no acute fracture. IMPRESSION: 1. No acute intracranial abnormality by CT. 2. Left-sided periorbital soft tissue swelling with hematoma are preseptal. This document has been electronically signed by: Markus Rojas MD on 01/28/2025 20:47:52
--- NOTE | ~2025-01-28 | CT_ITS ---
CLINICAL HISTORY: Fall CT maxillofacial without contrast Comparison: Head CT from 01/28/2025 Findings: Left-sided periorbital soft tissue swelling and left-sided periorbital hematoma appear preseptal. Lucency of the roof of the left orbit appears old/chronic. Bilateral nasal bone fractures/deformities with remodeling appear old/chronic. Mucosal thickening of the imaged paranasal sinuses are multifocal without acute appearing or suspicious air-fluid levels. Metal and lucencies associated with multiple remaining imaged teeth. No acute displaced mandible fracture. Mild osteoarthritis of the temporomandibular joints without dislocation. Small defects of the medial mon of the maxillary sinuses are likely postprocedural. Mid to anterior portion of the nasal septum deviates to the right. Vascular calcifications noted. Imaged mastoid air cells are well aerated. IMPRESSION: 1. Left-sided periorbital soft tissue swelling of the left-sided periorbital soft tissue hematoma are preseptal. 2. Imaged bilateral fractures appear old/chronic. This document has been electronically signed by: Markus Rojas MD on 01/28/2025 20:48:23
--- NOTE | ~2025-01-28 | CT_ITS ---
CLINICAL HISTORY: Fall CT cervical spine without contrast Comparison: None provided Findings: No acute fracture of the cervical spine. Straightening of the cervical lordosis. Trace anterolisthesis at C2-C3 and C3-C4. Disc osteophyte complexes with mild spinal canal stenosis include C4-C5 through C6-C7. Foraminal narrowing includes mild-moderate on the left C4-C5 through C6-C7. Facet arthropathy and ligament calcifications are multifocal. Vascular calcifications are noted. No paraspinal hematoma. Right-sided chest port and/or catheter is partially imaged. Scarring and emphysematous changes include imaged lung apices. IMPRESSION: No acute fracture of the cervical spine. This document has been electronically signed by: Markus Rojas MD on 01/28/2025 20:32:20
[2025-01-28 19:24] VITALS: BP 149/67; PULSE 69; RESP 17; TEMP 36.3; O2SAT 98; BMI 21.2
--- NOTE | 2025-01-28 19:30 | ECG_ITS ---
Test Reason : syncope Blood Pressure : */* mmHG Vent. Rate : 65 BPM Atrial Rate : 65 BPM P-R Int : 226 ms QRS Dur : 88 ms QT Int : 386 ms P-R-T Axes : 59 -8 8 degrees QTcB Int : 401 ms Sinus rhythm with 1st degree A-V block Otherwise normal ECG When compared with ECG of 30-Aug-2021 18:02, No significant change was found Referred By: Rito Chambers Electronically Signed By: SAMEER LYNN MD
--- NOTE | 2025-01-28 20:04 | ED.GENADULT ---
HPI - General Adult General Chief complaint: Head Injury Stated complaint: left side face injury (fall) Time Seen by Provider: 01/28/25 23:46 Source: patient Limitations: no limitations History of Present Illness ED Provider: Tricia Reed PA-C HPI narrative: 74-year-old female with a history of hypertension, AFib on Eliquis, hyperlipidemia, liver cancer status post partial resection who is on chemotherapy, known pancytopenia who presents after mechanical fall. Patient was at the beach in [place], she subsequently tripped over a curb, falling forward, striking her face. There was no loss consciousness. Patient complains of facial pain, headache and right knee pain. Related Data Home Medications ?Medication ?Instructions ?Recorded ?Confirmed diltiazem HCl 240 mg 240 mg PO DAILY 10/09/20 06/23/22 capsule,extended release 24 hr losartan 50 mg tablet 100 mg PO DAILY 10/09/20 06/23/22 multivitamin 1 tab PO DAILY 10/09/20 06/23/22 pravastatin 40 mg tablet 40 mg PO DAILY 10/09/20 06/23/22 acyclovir 400 mg tablet 400 mg PO DAILY 08/27/24 apixaban 5 mg tablet (Eliquis) 5 mg PO BID 08/27/24 carvedilol 6.25 mg tablet 6.25 mg PO BID 08/27/24 hydrochlorothiazide 25 mg tablet 25 mg PO DAILY 08/27/24 Allergies Allergy/AdvReac Type Severity Reaction Status Date / Time Penicillins (PENICILLINS) Allergy Intermediate HIVES Verified 01/28/25 19:26 pregabalin Allergy Unknown hives Verified 01/28/25 19:26 meperidine (From DEMEROL) AdvReac Severe HEADACHE/VO Verified 01/28/25 19:26 MITING Review of Systems Review of Systems: Yes all other systems are reviewed and are negative Constitutional: Constitutional: Denies fatigue, Denies fever(s) and Reports headache(s) ENT: Denies dizziness, Reports headache(s) and Denies neck pain Cardiovascular: Cardiovascular: Denies chest pain and Denies dyspnea Respiratory: Respiratory: Denies dyspnea Gastrointestinal: Gastrointestinal: Denies abdominal pain, Denies nausea and Denies vomiting Musculoskeletal: Musculoskeletal: Denies back pain, Reports arthralgias, Reports joint swelling and Denies neck pain Neurologic: Denies dizziness and Reports headache(s) Endocrine: Endocrine: Denies fatigue [facility] Past Medical History Attestation statement: The following information was validated with the patient. Surgical History (Updated 08/27/24 @ 14:34 by Linnea Christianson CMA) History of resection of liver (~2019) History of back surgery Hx of foot surgery Hx of breast surgery Hx of knee surgery Family History Family History Mother No problems noted. Father No problems noted. Sister No problems noted. Sister No problems noted. Sister No problems noted. Sister No problems noted. Brother No problems noted. Brother No problems noted. Brother No problems noted. Son No problems noted. Daughter Obesity Social History Social History Alcohol intake: current Alcohol intake frequency: holidays/special occasions only Patient Tobacco Use Status: Never used Tobacco Advance Directives: No Advance Directives Information Provided: No Do you have a plan to hurt others: No Plan Current occupational status: employed Current occupation: [employer] Physical Exam ED Exam Exam: Alert Vital Signs: Vital Signs - 24 hr 01/28/25 19:24 01/28/25 23:38 Temperature 97.3 F 98.3 F Pulse Rate 69 64 Respiratory Rate 17 13 Blood Pressure 149/67 H 142/73 H Pulse Oximetry 98 100 Oxygen Delivery Method Room Air Room Air BMI result Body Mass Index 21.2 Const Orientation/consciousness: patient oriented x3 HENMT Other: Dentition intact, upper left lip is swollen and ecchymotic Eyes Other: Left periorbital ecchymosis, hematoma of upper lid Resp Effort & Inspection: normal respiratory effort Cardio Other: Normal peripheral perfusion Skin Other: Warm dry no rash Neuro General: patient oriented x3, gait normal, no focal motor deficits and CN's II-XI intact bilaterally Extrem Other: Able to fully extend and flex from the right knee Psych Other: Cooperative Course Course Course Narrative: RME: 74 yold female presents to the ED for fall due to tripping in [place] and daughter drover her to the ED. positivve for left orbital ecchymosis. labs imaging ordered Medical Decision Making Medical Decision Making MDM Narrative: 74-year-old female with a history of hypertension, AFib on Eliquis, hyperlipidemia, liver cancer status post partial resection who is on chemotherapy, known pancytopenia who presents after mechanical fall. Patient was at the beach in [place], she subsequently tripped over a curb, falling forward, striking her face. There was no loss consciousness. Patient complains of facial pain, headache and right knee pain. Problem: Use of anticoagulation, cancer patient, known pancytopenia History: Per patient I have considered the following differential diagnoses: Facial bone fracture, intracranial hemorrhage, cervical spine injury, fracture, dislocation Plan: Imaging ordered from triage, the patient has sustained soft tissue injuries. The patient has been up and ambulatory with her walker, prior to her complete assessment. She is eager for discharge. I did offer case management, however the patient has services to the home, she has a partner whom she lives with, and her daughter is actively involved in her care. Her anemia is stable at this time. I have independently reviewed the following tests: Labs: Stable pancytopenia, no electrolyte abnormality CT brain:MPRESSION: 1. No acute intracranial abnormality by CT. 2. Left-sided periorbital soft tissue swelling with hematoma are preseptal. CT cervical spine:Findings: No acute fracture of the cervical spine. Straightening of the cervical lordosis. Trace anterolisthesis at C2-C3 and C3-C4. Disc osteophyte complexes with mild spinal canal stenosis include C4-C5 through C6-C7. Foraminal narrowing includes mild-moderate on the left C4-C5 through C6-C7. Facet arthropathy and ligament calcifications are multifocal. Vascular calcifications are noted. No paraspinal hematoma. Right-sided chest port and/or catheter is partially imaged. Scarring and emphysematous changes include imaged lung apices. IMPRESSION: No acute fracture of the cervical spine. CT max face:Findings: Left-sided periorbital soft tissue swelling and left-sided periorbital hematoma appear preseptal. Lucency of the roof of the left orbit appears old/chronic. Bilateral nasal bone fractures/deformities with remodeling appear old/chronic. Mucosal thickening of the imaged paranasal sinuses are multifocal without acute appearing or suspicious air-fluid levels. Metal and lucencies associated with multiple remaining imaged teeth. No acute displaced mandible fracture. Mild osteoarthritis of the temporomandibular joints without dislocation. Small defects of the medial mon of the maxillary sinuses are likely postprocedural. Mid to anterior portion of the nasal septum deviates to the right. Vascular calcifications noted. Imaged mastoid air cells are well aerated. IMPRESSION: 1. Left-sided periorbital soft tissue swelling of the left-sided periorbital soft tissue hematoma are preseptal. 2. Imaged bilateral fractures appear old/chronic. X-ray right knee:Findings: Postprocedural changes from right knee arthroplasty. No displaced fracture or definite hardware loosening. Moderate effusion present with multiple loose bodies. Remodeling including proximal fibula. IMPRESSION: 1. No acute fracture or hardware loosening by radiographs. 2. Effusion present. Lab Data 01/28/25 21:47 01/28/25 21:47 Labs: Lab Results 01/28/25 01/28/25 Range/Units 21:46 21:47 WBC 2.7 L (4.8-10.8) X10*3/uL RBC 2.95 L D (4.20-5.50) X10*6/uL Hgb 9.6 L D (12.0-16.0) g/dl Hct 28.6 L D (37.0-47.0) % MCV 96.9 (80.0-98.0) fL MCH 32.5 (27.0-33.0) pg MCHC 33.6 (31.0-35.0) g/dl RDW 18.8 H (11.0-16.0) % Plt Count 91 L D (160-400) X10*3/uL MPV 9.4 (9.4-12.3) fL Immature Gran % (Auto) 0.4 (0.0-0.4) % Neut % (Auto) 56.6 (45-73) % Lymph % (Auto) 27.3 (20-40) % Jay % (Auto) 10.9 (2-11) % Eos % (Auto) 4.1 H (0-4) % Baso % (Auto) 0.7 (0-2) % Lymph # (Auto) 0.7 L (1.2-4.9) X10*3/uL Jay # (Auto) 0.3 (0.1-1.2) X10*3/uL Eos # (Auto) 0.1 (0.0-0.4) X10*3/uL Baso # (Auto) 0.0 (0.0-0.2) X10*3/uL Abs Immat Gran (auto) 0.01 (0.00-0.03) X10*3/uL Absolute Neuts (auto) 1.5 L (2.0-8.3) x10*3/uL Absolute Nucleated RBC 0.000 (0.0-0.012) X10*3/uL Nucleated RBC % (auto) 0.0 (0.0-0.2) /100WBC PT 26.4 H (10.9-12.4) SEC INR 2.3 H (0.9-1.1) APTT 39.8 H (26.7-34.1) SEC Sodium 142 (135-145) mmol/L Potassium 3.8 (3.3-5.1) mmol/L Chloride 112 H (96-108) mmol/L Carbon Dioxide 21 L (22-29) mmol/L Anion Gap 13 (12-20) BUN 28 H (9-16) mg/dL Creatinine 0.99 (0.5-1.4) mg/dL Estim Creat Clear Calc 44.3 Estimated GFR 55 Random Glucose 76 (60-115) mg/dL Calcium 8.6 D (8.4-10.2) mg/dL Total Bilirubin 2.0 H (0.0-1.0) mg/dL AST 104 H (5-31) U/L ALT 85 H (0-31) U/L Alkaline Phosphatase 135 H (39-117) U/L Troponin I High Sens 3.3 (<3.5-17.0) ng/L Total Protein 6.6 (6.5-8.0) g/dL Albumin 3.4 L (3.5-5.0) g/dL Discharge Plan Discharge Clinical Impression: Periorbital ecchymosis of left eye, Closed head injury, Contusion of knee, right Patient Disposition: Home, Self-Care Instructions: [place] (ED), Head Injury (ED), Contusion in Adults (ED) Additional Instructions: The CT scan of your brain and cervical spine were negative for acute injury. You were found to have evidence of old nasal bone fractures. The x-ray of the right knee was negative for fracture or dislocation, you have a contusion. See home care instructions. Follow up with your primary care provider as needed. Prescriptions: No Action pravastatin 40 mg tablet 40 mg PO DAILY diltiazem HCl 240 mg capsule,extended release 24hr 240 mg PO DAILY losartan 50 mg tablet 100 mg PO DAILY multivitamin Tablet 1 tab PO DAILY acyclovir 400 mg tablet 400 mg PO DAILY carvedilol 6.25 mg tablet 6.25 mg PO BID Rx Instructions: must administer with a meal/food Eliquis 5 mg tablet 5 mg PO BID hydrochlorothiazide 25 mg tablet 25 mg PO DAILY Interventions: ED Discharge Assessment Last Done: 01/29/25 02:21 Discharge Date/Time: 01/29/25 02:23 Print Language: British
[2025-01-28 21:52] LABS: MANUAL DIFF FLAG NO
[2025-01-28 21:54] LABS: Hematocrit 28.6 % (37.0-47.0); Hemoglobin 9.6 g/dl (12.0-16.0); Imm Gran Abs Auto 0.01 X10*3/uL (0.00-0.03); Imm Gran Pct Auto 0.4 % (0.0-0.4); Lymphocytes Absolute Auto 0.7 X10*3/uL (1.2-4.9); Mean Corpuscular HGB Conc 33.6 g/dl (31.0-35.0); Mean Corpuscular Hemoglobin 32.5 pg (27.0-33.0); Mean Corpuscular Volume 96.9 fL (80.0-98.0); NRBC Abs Auto 0.000 X10*3/uL (0.0-0.012); NRBC Pct Auto 0.0 /100WBC (0.0-0.2); Red Blood Count 2.95 X10*6/uL (4.20-5.50); White Blood Count 2.7 X10*3/uL (4.8-10.8)
[2025-01-28 22:01] LABS: INTERNATIONAL NORM RATIO 2.3 (0.9-1.1); Prothrombin Time 26.4 SEC (10.9-12.4)
[2025-01-28 22:03] LABS: Partial Thromboplastin Time 39.8 SEC (26.7-34.1)
[2025-01-28 22:09] LABS: Alanine Aminotransferase 85 U/L (0-31); Albumin Level 3.4 g/dL (3.5-5.0); Alkaline Phosphatase 135 U/L (39-117); Anion Gap 13 (12-20); Aspartate Amino Transferase 104 U/L (5-31); Blood Urea Nitrogen 28 mg/dL (9-16); Calcium 8.6 mg/dL (8.4-10.2); Carbon Dioxide 21 mmol/L (22-29); Chloride 112 mmol/L (96-108); Creatinine Clr Calc Pharmacy 44.3; Estimated Glomerular Filt Rate 55; Potassium 3.8 mmol/L (3.3-5.1); Sodium 142 mmol/L (135-145); Total Protein 6.6 g/dL (6.5-8.0)
[2025-01-28 22:14] LABS: Platelet Count 91 X10*3/uL (160-400)
[2025-01-28 22:16] LABS: Troponin-I High Sensitivity 3.3 ng/L (<3.5-17.0)
[2025-01-28 23:38] VITALS: BP 142/73; PULSE 64; RESP 13; TEMP 36.8; O2SAT 100
[2025-01-29 02:21] VITALS: BP 130/66; PULSE 71; RESP 16; TEMP 37.1; O2SAT 99
== END 2025-01-29 02:23 | disposition home or self-care (01) ==
PROVIDERS: Physician Assistant; Emergency Provider Emergency Medicine
DX: S09.90XA Unspecified injury of head, initial encounter (principal); S05.12XA Contusion of eyeball and orbital tissues, left eye, initial encounter; S80.01XA Contusion of right knee, initial encounter; W18.30XA Fall on same level, unspecified, initial encounter; Y93.9 Activity, unspecified; Y92.9 Unspecified place or not applicable; Y99.9 Unspecified external cause status; R55 Syncope and collapse; D61.818 Other pancytopenia; I48.91 Unspecified atrial fibrillation; I10 Essential (primary) hypertension; C22.8 Malignant neoplasm of liver, primary, unspecified as to type; Z79.60 Long term (current) use of unspecified immunomodulators and immunosuppressants; Z79.01 Long term (current) use of anticoagulants
CPT/HCPCS: 36415; 70450; 70486; 72125; 73564; 80053; 84484; 85025; 85610; 85730; 93005; 99284

== ENCOUNTER → 2025-01-28 19:30 | Outpatient (BNV) | payer MEDICARE, SELFPAY | PROVIDERS: Emergency Provider Emergency Medicine; Visit Provider Internal Medicine Cardiovascular Disease | DX: I44.0 Atrioventricular block, first degree (principal) | CPT/HCPCS: 93010 ==

== ENCOUNTER → 2025-01-28 19:30 | Outpatient (BNV) | payer MEDICARE, SELFPAY | PROVIDERS: Visit Provider Radiology Neuroradiology | DX: Z04.3 Encounter for examination and observation following other accident (principal); R51.9 Headache, unspecified; S00.12XA Contusion of left eyelid and periocular area, initial encounter; M25.461 Effusion, right knee; W10.1XXA Fall (on)(from) sidewalk curb, initial encounter | CPT/HCPCS: 70450; 70486; 72125; 73564 ==